=== PATIENT | female | born 1965 | race Two or more races ===

== ENCOUNTER → 2017-10-30 | Outpatient (CLI) | payer OTHER | LOC: M WUC 16:50 | DX: R91.8 Other nonspecific abnormal finding of lung field (principal) | CPT/HCPCS: 71046 ==

== ENCOUNTER 2020-04-19 07:56 | Outpatient (RCR) | payer OTHER | END 2020-04-23 | LOC: M PT 07:56 | PROVIDERS: ATTEND Otolaryngology | DX: Z51.89 Encounter for other specified aftercare (principal); M26.69 Other specified disorders of temporomandibular joint ==

== ENCOUNTER → 2020-05-24 | Outpatient (RCR) | payer OTHER | LOC: M PT 04-26 07:55 | PROVIDERS: ATTEND Otolaryngology | DX: M26.609 Unspecified temporomandibular joint disorder, unspecified side (principal) ==

== ENCOUNTER → 2020-09-05 | Outpatient (REF) | payer OTHER ==
[2020-09-05 19:03] LABS: IMMUNOGLOBULIN E 7.1 IU/ML (<100); IMMUNOGLOBULIN M 44.6 MG/DL (40-230)
[2020-09-10 02:07] LABS: ALPHA 1 ANTITRYPSIN 143 mg/dL (101-187); D001-IgE D pteronyssinus <0.10 kU/L (Class 0); E001-IgE Cat Epith/Dander < 0.10 kU/L (Class 0); E003-IGE HORSE EPITHELIA/DAND <0.10 kU/L (Class 0); E004-IGE COW DANDER <0.10 kU/L (Class 0); E005-IgE Dog Dander < 0.10 kU/L (Class 0); F002-IgE Milk < 0.10 kU/L (Class 0); F004-IgE Wheat < 0.10 kU/L (Class 0); F013-IgE Peanut < 0.10 kU/L (Class 0); F014-IgE Soybean < 0.10 kU/L (Class 0); F026-IgE Pork < 0.10 kU/L (Class 0); F027-IgE Beef < 0.10 kU/L (Class 0); F245-IgE Egg, Whole < 0.10 kU/L (Class 0); FX02-IgE Food Mix (Sea Foods) Negative (.); G002-IgE Bermuda Grass < 0.10 kU/L (Class 0); G008-IgE Kentucky Bluegrass < 0.10 kU/L (Class 0); M001-IgE Penicillium chrysogen < 0.10 kU/L (Class 0); M002 IgE Cladosporium herbaru < 0.10 kU/L (Class 0); M003 IgE Aspergillus fumigatu < 0.10 kU/L (Class 0); M006-IgE Alternaria alternata < 0.10 kU/L (Class 0); T001-IgE Maple/Box Elder < 0.10 kU/L (Class 0); T003-IgE Common Silver Birch < 0.10 kU/L (Class 0); T006-IgE Cedar, Mountain < 0.10 kU/L (Class 0); T007-IgE Oak, White < 0.10 kU/L (Class 0); T008-IgE Elm, American < 0.10 kU/L (Class 0); T015-IgE Ash, White < 0.10 kU/L (Class 0); T041-IgE Hickory, White < 0.10 kU/L (Class 0); T070-IgE White Mulberry < 0.10 kU/L (Class 0); W001-IgE Ragweed, Short < 0.10 kU/L (Class 0); W009-IgE Plantain, English < 0.10 kU/L (Class 0); W014-IgE Pigweed, Rough < 0.10 kU/L (Class 0); W018-IgE Sheep Sorrel < 0.10 kU/L (Class 0)
== END ==
LOC: M LAB REF 16:17
PROVIDERS: ATTEND Internal Medicine
DX: J30.2 Other seasonal allergic rhinitis (principal); L50.9 Urticaria, unspecified; H10.45 Other chronic allergic conjunctivitis

== ENCOUNTER → 2023-01-14 | Outpatient (CLI) | payer OTHER ==
[~2023-01-14] MED LIST: ISOVUE-370 76% 100ML VIAL As Ordered ONE
== END ==
LOC: M RAD 07:22
PROVIDERS: ATTEND Internal Medicine
DX: R59.0 Localized enlarged lymph nodes (principal)
CPT/HCPCS: 70491; Q9967

== ENCOUNTER → 2025-02-13 | Outpatient (CLI) | payer OTHER | LOC: M RAD 14:32 | PROVIDERS: ATTEND Internal Medicine | DX: E04.2 Nontoxic multinodular goiter (principal) ==